=== PATIENT | female | born 1970 | race Caucasian/White ===

== ENCOUNTER → 2023-12-05 16:37 | Outpatient (REF) | payer OTHER, SELFPAY | LOC: HWWDC 16:37 | PROVIDERS: ATTENDING PHYSICIAN Nurse Practitioner | DX: Z12.31 Encounter for screening mammogram for malignant neoplasm of breast (principal) | CPT/HCPCS: 77063; 77067 ==

== ENCOUNTER 2024-11-19 11:01 | Emergency (ER) | payer OTHER, SELFPAY ==
[2024-11-19 11:04] VITALS: BP 151/88
[2024-11-19 11:17] VITALS: BMI 18.4
[2024-11-19 11:18] VITALS: BP 151/88
[2024-11-19 11:29] LABS: % Basophils 1.2 % (0-2); % Eosinophils 1.2 % (0-6); % Immature Granulocytes 0.2 % (0-0.5); % Neutrophils 61.4 % (42.2-75.2); Absolute Basophils 0.1 10^3/uL (0-0.2); Absolute Eosinophils 0.1 10^3/uL (0-0.7); Absolute Lymphocytes 1.1 10^3/uL (1.2-3.4); Absolute Monocytes 0.5 10^3/uL (0.1-0.6); Absolute Neutrophils 2.6 10^3/uL (1.4-6.5); Hemoglobin 13.1 g/dL (12.0-16.0); Mean Corp Hgb Conc. 33.6 g/dL (33.0-37.0); Mean Corpuscular Hgb 31.6 pg (27.0-31.0); Mean Platelet Volume 10.3 fL (7.4-10.4); Nucleated Red Blood Cells % 0 %; Platelet Count 198 10^3/uL (130-400); Red Blood Cell Count 4.15 10^6/uL (4.20-5.40); Red Cell Dist. Width 12.9 % (11.5-14.5); White Blood Cell Count 4.3 10^3/uL (4.8-10.8)
[2024-11-19 11:35] LABS: COVID-19 Antigen Negative (Negative)
[2024-11-19 11:44] LABS: ALT (SGPT) 35 U/L (0-35); AST (SGOT) 38 U/L (14-36); Albumin 4.5 g/dl (3.5-5.0); Alkaline Phosphatase 65 U/L (38-126); Blood Urea Nitrogen 12 mg/dl (7-17); Calcium 9.4 mg/dl (8.4-10.2); Carbon Dioxide 27 mmol/L (22-30); Chloride 104 mmol/L (98-107); Estimated Creatinine Clearance 86 ml/min; Glucose 96 mg/dl (70-99); Potassium 4.3 mmol/L (3.5-5.1); Sodium 140 mmol/L (135-145); Total Bilirubin 0.4 mg/dl (0.2-1.3); eGFR > 60.00
--- NOTE | 2024-11-19 11:58 | ED.GENMED ---
History of Present Illness
General
Chief Complaint: Dizziness
Source: patient
Exam Limitations: none
Time Seen by Provider: 11/19/24 11:08
History of Present Illness
History of Present Illness:
54-year-old female with near syncopal episode while driving. [place] this coming on. Was parked lifted her legs up diaphoretic. No sudden chest pain shortness of breath heart racing or other complaints. However she has had ongoing cough and
congestion the last 3 or 4 days. Recurrent respiratory issues the last month or so. No pleuritic pain no hemoptysis some hoarseness this morning. was ill recently with a respiratory issue
Past History
Past History
ED Past Medical History: None
Review of Systems
Review of Systems
All Other Systems: Not applicable
Respiratory: Reports cough; Denies hemoptysis
Cardiac: Denies palpitations
ABD/GI: Reports no symptoms
Phy Exam
Physical Exam
Physical Exam:
GENERAL: Alert and oriented in no apparent distress
EYE: Orbits normal.
NECK: Supple, no significant adenopathy.
ENT: Pharynx without erythema. Hoarse voice
CARDIAC: Regular rate and rhythm without any obvious murmurs.
LUNGS: No respiratory distress but mild end expiratory rhonchi. Somewhat coarse sounding cough at times
ABDOMEN: Soft, without focal tenderness or distention
NEUROLOGICAL: Alert and oriented , grossly non-focal
SKIN: Warm and dry, no rash or lesion, no discoloration, skin intact.
MUSCULOSKELETAL: No edema,no deformity.Good color
PSYCH: Normal and appropriate interaction.
Course
Orders/Labs/Results
Orders:
Orders
11/19/24 11:02
Electrocardiogram (*1) Urgent
Reason for Study: Shortness of Breath
CR Chest - 2 Views Urgent
Comment:
Reason For Exam: shortness of breath
11/19/24 11:03
EKG- Treatment ONCE
11/19/24 11:04
COVID-19 Antigen Urgent
Source: Nasal Swab
Complete Blood Count/With Diff Urgent
Comprehensive Metabolic Panel Urgent
Influenza A+B Rapid Molecular Urgent
DAGOBERTO Source: Nasal Swab
Specimen Description:
11/19/24 11:39
0.9% Sodium Chloride 1000 ml [Nss] 1,000 ml IV BOLUS
Albuterol Nebs [Ventolin Nebules] 2.5 mg INH R NOW STA
Dexamethasone Sod Phosphate [Decadron] 6 mg IV NOW STA
11/19/24 11:59
Dexamethasone Pf [Decadron] 10 mg .ROUTE .STK-MED ONE
11/19/24 12:09
D-Dimer Urgent
Troponin I Urgent
11/19/24 12:48
CT Chest PE Study Urgent
Comment:
Reason For Exam: High normal dimer/short of breath
11/19/24 15:56
Doxycycline [Vibramycin] 100 mg PO NOW STA
11/19/24 16:02
Doxycycline [Vibramycin] 100 mg PO NOW STA
Abnormal Lab Results
11/19/24
11:04
WBC 4.3 L 10^3/uL
(4.8-10.8)
RBC 4.15 L 10^6/uL
(4.20-5.40)
MCH 31.6 H pg
(27.0-31.0)
Absolute Lymphs (auto) 1.1 L 10^3/uL
(1.2-3.4)
Monocytes % 11.0 H %
(1.7-9.3)
AST 38 H U/L
(14-36)
11/19/24 11:04
11/19/24 11:04
Vital Signs
Initial and Last Documented VS:
Initial Vital Signs
BP
151/88
11/19/24 11:04
Last Documented Vital Signs
Temp Pulse Resp BP Pulse Ox
98.4 F 64 17 124/74 98
11/19/24 11:18 11/19/24 14:45 11/19/24 14:45 11/19/24 13:00 11/19/24 14:45
MDM/Problems Addressed
Differential Diagnosis Includes:
Patient describing respiratory symptoms. Coarse congestion and rhonchi. For this we will give a dose of steroids neb treatment. COVID flu negative. Chest x-ray pending. As for the syncope this is described as a vasovagal like syncope. Clearly
had a prodrome. Highly doubt cardiac arrhythmia. With recent multiple respiratory issues D-dimer and troponin were also done
*Radiology
Radiology exam reviewed: radiology read reviewed (Nodule in the lung. CT scan no pulmonary emboli. Haziness to the right upper lobe)
*Pulse Oximetry
Patient hypoxic: no
*EKG
Interpreted by ED Provider?: Yes
Interpretation: normal
Comparison EKG: no comparison EKG present
Heart Rate: 65
Rate: normal
Rhythm: sinus
[place]: normal axis
Interval: normal interval
QRS Pattern: normal QRS
Ischemia: no ischemia
*Downstairs Maid Interpretation
Rate: normal
Interpretation: normal
Heart Rate: 66
Rhythm: sinus
*Critical Care Note
Total Time (30-74mins, 75-104mins- exclusive of procedures): Not Applicable
Update Note
Update Note:
Get a follow-up CAT scan of the lung the next few months
ED Attending Note
-
Portions of this chart may have been created with voice recognition software.� Occasional wrong word or��sound alike� substitutions may have occurred due to the inherent limitations of voice recognition software.
Discharge Plan
Departure
Patient Disposition: Home (Routine Discharge)
Date of Disposition: 11/19/24
Time of Disposition: 15:58
Patient with high blood pressure during this ER visit?: Yes
Discharge Problem:
Syncope, pneumonitis right upper lobe
Instructions: Pneumonitis (DC), Syncope (fainting) - Discharge instructions, BLOOD PRESSURE
Prescriptions:
New
doxycycline hyclate 100 mg capsule
100 mg PO BID 10 Days Qty: 20 0RF
prednisone 10 mg tablet
10 mg PO DAILY Qty: 20 0RF
Rx Instructions:
4 tablets day 1. Then 1 less tablet every other day until gone
albuterol sulfate 90 mcg/actuation HFA aerosol inhaler
2 inh inhalation Q4H PRN (Reason: shortness of breath or wheezing) Qty: 8.5 0RF
Referrals:
Indira Abdullahi, DO [Family Provider] -
Activity Restrictions/Additional Instructions:
Follow-up CAT scan in the next few months to confirm resolution of inflammation in the right upper lobe
Your prescriptions were sent to your pharmacy
Interventions
Interventions:
*Risk Screen - Suicide Last Done: 11/19/24 11:18
*General Assessment Last Done: 11/19/24 11:18
*Neglect/Abuse Screening Last Done: 11/19/24 11:18
*ED- Fall Risk Assessment Last Done: 11/19/24 11:18
*ED COVID-19 Vaccine History Last Done: 11/19/24 11:18
ED- Neurological Assessment Last Done: 11/19/24 11:18
ED- Cardiac Assessment Last Done: 11/19/24 11:18
ED Swallowing Screen Last Done: 11/19/24 11:18
Discharge Date and Time
Print Language: SYRIAC
[2024-11-19] MEDS: DECADRON 6 MG IV (12:02)
[2024-11-19] MEDS: VENTOLIN NEBULES 2.5 MG INH (12:02)
[2024-11-19] MEDS: NSS 1000 IV (12:02)
[2024-11-19 12:03] VITALS: BP 126/85
[2024-11-19 12:38] LABS: D-Dimer 0.48 ug/mlFEU (0.00-0.50)
[2024-11-19 12:48] LABS: Troponin I < 0.012 ng/ml
[2024-11-19 13:00] VITALS: BP 124/74
[2024-11-19 15:42] VITALS: BP 128/82
[2024-11-19 16:00] VITALS: BP 114/70
[2024-11-19] MEDS: VIBRAMYCIN 100 MG PO (16:02)
== END 2024-11-19 16:07 | disposition home or self-care (01) ==
LOC: EMR 11:01
PROVIDERS: EMERGENCY PHYSICIAN Emergency Medicine; FAMILY PHYSICIAN Family Medicine
DX: R55 Syncope and collapse (principal); J98.4 Other disorders of lung; R05.9 Cough, unspecified; R06.02 Shortness of breath; Z11.52 Encounter for screening for COVID-19; R03.0 Elevated blood-pressure reading, without diagnosis of hypertension
CPT/HCPCS: 99285; 96361; 94640; 96374; 71046; 71275; 80053; 84484; 85025; 85379; 87502; 87811; 93005; 96375; Q9967

== ENCOUNTER → 2025-01-21 17:18 | Outpatient (REF) | payer OTHER, SELFPAY | LOC: RAD 17:18 | PROVIDERS: ATTENDING PHYSICIAN Family Medicine | DX: J98.4 Other disorders of lung (principal); R91.8 Other nonspecific abnormal finding of lung field; R93.89 Abnormal findings on diagnostic imaging of other specified body structures; R91.1 Solitary pulmonary nodule | CPT/HCPCS: 71260; Q9967 ==

== ENCOUNTER → 2025-02-07 15:49 | Outpatient (REF) | payer OTHER, SELFPAY | LOC: WDC 15:49 | PROVIDERS: ATTENDING PHYSICIAN Family Medicine | DX: Z12.31 Encounter for screening mammogram for malignant neoplasm of breast (principal) | CPT/HCPCS: 77063; 77067 ==